=== PATIENT | male | born 1975 | race Caucasian/White ===

== ENCOUNTER 2017-12-27 12:34 | Emergency (ER) | payer BC ==
[2017-12-27 13:07] VITALS: BP 141/90
--- NOTE | 2017-12-27 14:05 | UC ---
Minor Trauma HPI - HPI Summary HPI Summary: 42 y/o male fell down full flight of steps last night at 2AM, had been drinking throughout the day but denies intoxication, denies LOC, no WATSON, neck pain. Ambulatory to bed, fell asleep, increased pain this AM in multiple locations with edema, bruising: - L middle finger, - L lower leg -chest near sterum worse with breathing - base of neck - R forearm - right shoulder Denies bowel, bladder loss. No medications/ OTCs for pain. Denies nausea/ vomiting. - History of Current Complaint Chief Complaint: UCUpperExtremity Stated Complaint: RIB AND BACK INJURY Time Seen by Provider: 12/27/17 13:25 Hx Obtained From: Patient, Family/Medical Physicist - Onset/Duration: Sudden Onset, Lasting Hours Onset Of Pain: Post Accident Severity Initially: Severe Severity Currently: Moderate Pain Intensity: 6 Pain Scale Used: 0-10 Numeric Mechanism Of Injury: Fall From Height Of: - top of full flight of steps, ~ 15 Aggravating Factor(s): Deep Breaths - to sternal area, Movement - fingers, shoulder Associated Signs And Symptoms: Positive: Ecchymosis, Swelling. Negative: Loss Of Consciousness - Allergies/Home Medications Allergies/Adverse Reactions: Allergies Allergy/AdvReac Type Severity Reaction Status Date / Time codeine Allergy GI Upset Verified 12/27/17 13:07 Home Medications: Home Medications Amlodipine Besylate [Norvasc 10 mg tab] 10 mg PO DAILY 12/27/17 [History Confirmed 12/27/17] Hydrochlorothiazide TAB* [Hydrodiuril TAB*] 25 mg PO DAILY 12/27/17 [History Confirmed 12/27/17] Spironolactone TAB* [Aldactone TAB 25 MG*] 25 mg PO DAILY 12/27/17 [History Confirmed 12/27/17] PMH/Surg Hx/FS Hx/Imm Hx - Additional Past Medical History Additional PMH: denies blood thinners Previously Healthy: Yes - HTN - Surgical History Surgical History: Yes Surgery Procedure, Year, and Place: RT [facility] ORIF - Social History Alcohol Use: Occasionally Substance Use Type: None Smoking Status (MU): Never Smoked Tobacco Type: Smokeless Tobacco Review of Systems Constitutional: Negative Musculoskeletal: Arthralgia, Edema, Myalgia Is Patient Immunocompromised?: No All Other Systems Reviewed And Are Negative: Yes Physical Exam - Summary Physical Exam Summary: T 1 region right sided, superficially, FUll ROM of neck, full strength with shoulder abd, flex, ext, add b/l, full prn/ supination of wrists b/l, full elbow movement b/l without pain, no snuff box tenderness b/l, rad/ ulnar pulses 2+ b/l, 4/5 eye physician strength on L due to pain in middle finger, 5/5 right; SITLT b/ l UE's, full ROM b/l wrists without pain, TTP L middle finger with associated ecchymosis, edema throughout finger. cap refill < 2secs b/l all fingers. full thumb AROM b/l. B/l LE's with + DF/ PF b/l 5/5 strength, TTP over mid saft tibia Left without ecchymosis, mild edema, Triage Information Reviewed: Yes Appearance: Well-Appearing, Well-Nourished, Pain Distress - mild at rest, moderate with movement Vital Signs: Initial Vital Signs Temp 99.2 F 12/27/17 13:04 Pulse 99 12/27/17 13:04 Resp 18 12/27/17 13:04 BP 141/90 12/27/17 13:04 Pulse Ox 100 12/27/17 13:04 Vital Signs Reviewed: Yes Eyes: Positive: Conjunctiva Inflamed ENT: Positive: TMs normal, Other - TMJ intact, no pain, no mastoid tenderness, no blood on TM exam. Dental Exam: Normal Dental: Negative: Cervical Lymphadenopathy Neck: Positive: Supple, No Lymphadenopathy, Tenderness @ - T 1 region right sided, superficially, FUll ROM of neck, full strength with shoulder abd, flex, ext, add b/l, full prn/ supination of wrists b/l, full elbow movement b/l without pain, no snuff box tenderness b/l, rad/ ulnar pulses 2+ b/l, 4/5 eye physician strength on L due to pain in middle finger, 5/5 right; SITLT b/l UE's, full ROM b/l wrists without pain, TTP L middle finger with associated ecchymosis, edema throughout finger. cap refill < 2secs b/l all fingers. full thumb AROM b/l.. Negative: Nuchal Rigidity Respiratory: Positive: Lungs clear, Normal breath sounds - mildly diminished b/ l due to poor effort due to pain, No respiratory distress, No accessory muscle use, Other: - TTP over lower third of sternum left sided. Negative: Respiratory distress, Decreased breath sounds, Crackles, Rhonchi, Stridor, Wheezing, Expiration, Inspiration Cardiovascular: Positive: RRR, No Murmur, Pulses Normal, Brisk Capillary Refill - b/l fingers Abdomen Description: Positive: Nontender, No Organomegaly, Soft. Negative: CVA Tenderness (R), CVA Tenderness (L) Musculoskeletal: Positive: Other: - T 1 region right sided, superficially, FUll ROM of neck, full strength with shoulder abd, flex, ext, add b/l, full prn / supination of wrists b/l, full elbow movement b/l without pain, no snuff box tenderness b/l, rad/ ulnar pulses 2+ b/l, 4/5 eye physician strength on L due to pain in middle finger, 5/5 right; SITLT b/l UE's, full ROM b/l wrists without pain, TTP L middle finger with associated ecchymosis, edema throughout finger. cap refill < 2secs b/l all fingers. full thumb AROM b/l. L shoulder non-tender, R shoulder TTP over AC joint, anterioro shoulder, full strenth with AROM against resistence, + ecchymosis anterior with superfical scraping. TTP over coccyx, patient denies bowel/ bladder incontinence. Neurological: Positive: Other: - able to stand n toes, heels, run heel up jack b /l, stand on one foot without difficulty b/l, patellar reflexes 2+ b/l, SITLT b/ l, + DF/PF = b/l. neg duran, neg homans, calf soft, non-tender. Psychological Exam: Normal Minor Trauma Course/Dx - Course Course Of Treatment: x-ray- negative for fracture, contusions, conservative treatment, work note given - Differential Dx/Diagnosis Differential Diagnosis/HQI/PQRI: Contusion(s), Fracture Provider Diagnoses: contusion, mulitple Discharge - Sign-Out/Discharge Documenting (check all that apply): Patient Departure All imaging exams completed and their final reports reviewed: Yes - Discharge Plan Condition: Good Disposition: HOME Prescriptions: Naproxen TAB* [Naprosyn 250 mg TAB*] 250 mg PO Q8H PRN #60 tab PRN Reason: Pain Tramadol HCl [Ultram] 50 mg PO Q6H PRN #30 tablet MDD 4 PRN Reason: Pain Patient Education Materials: Rib Fracture (ED), Contusion in Adults (ED), R.I.C.E. Treatment (ED) Forms: *Work Release Referrals: Yusuf Martinez DO [Primary Care Provider] - Additional Instructions: - Increased rest and fluids - Return to ER with increased dizziness, headache not relieved by pain medication, loss of bowel/ bladder control, weakness, numbness - Naproxen for pain relief, ultram as needed for severe pain - Follow up with primary physician as needed - Billing Disposition and Condition Condition: GOOD Disposition: Home
--- NOTE | 2017-12-27 15:04 | RAD ---
Indication: LEFT third finger pain post fall. Comparison: No relevant prior exams available on the [facility] for comparison. Technique: 3 views LEFT third finger. REPORT AND IMPRESSION: #. Negative for fracture or articular malalignment. Mild fusiform swelling distally.
--- NOTE | 2017-12-27 15:04 | RAD ---
INDICATION: Right forearm injury. TECHNIQUE: 2 views of the right forearm were obtained. FINDINGS: There is soft tissue swelling present along the dorsal aspect of the forearm. The bones are normal alignment. No fracture is seen. IMPRESSION: SOFT TISSUE SWELLING, NO FRACTURE IS SEEN.
--- NOTE | 2017-12-27 15:06 | RAD ---
Indication: RIGHT shoulder pain post fall. Tenderness to palpation anteriorly at the AC joint. Comparison: No relevant prior exams available on the [facility] [place] [facility] for comparison. Technique: Internal rotation AP, external rotation Grashey, scapular Y, axillary views RIGHT shoulder Report: Normal acromioclavicular and glenohumeral joint alignment. Negative for fracture. No arthropathic change evident. Unremarkable soft tissue contours. IMPRESSION: #. Negative radiographic exam of the RIGHT shoulder.
--- NOTE | 2017-12-27 15:08 | RAD ---
INDICATION: Sacrococcygeal injury. COMPARISON: There are no relevant prior studies available for comparison. TECHNIQUE: 3 views of the sacrococcygeal spine were obtained. FINDINGS: The vertebra are in normal alignment. No fracture is seen. IMPRESSION: NO EVIDENCE FOR FRACTURE.
--- NOTE | 2017-12-27 15:09 | RAD ---
Indication: Neck pain post fall. Tender to palpation over the RIGHT aspect of T1. Comparison: Thoracic spine exam of the same date and December 02, 2012 MRI. Technique: AP, open-mouth odontoid, lateral, and oblique views cervical spine. Report: Normal alignment from the craniocervical junction through the cervicothoracic junction. Assessment of the top of the T1 vertebral body is limited due to superimposed structures. No fracture visualized. Moderate C6-C7 disc space narrowing and anterior osteophytosis grossly new compared with the 2013 MRI. Oblique views are negative for osseous foraminal stenosis. Unremarkable prevertebral soft tissue contours. IMPRESSION: #. No radiographic evidence for traumatic injury of the cervical spine. #. C6-C7 degenerative spondylosis
--- NOTE | 2017-12-27 15:11 | RAD ---
INDICATION: Trauma. COMPARISON: There are no relevant prior studies available for comparison. TECHNIQUE: Dual-energy PA and lateral views of the chest were obtained. FINDINGS: The heart is within normal limits in size. Mediastinal and hilar contours appear within normal limits. The lungs are underinflated and clear. No pleural effusion or pneumothorax is seen. IMPRESSION: NO EVIDENCE FOR ACUTE FINDING.
--- NOTE | 2017-12-27 15:13 | RAD ---
Indication: Pain at the RIGHT margin of T1 post fall. Comparison: Cervical spine exam of the same date. Technique: AP and lateral views thoracic spine. Report: Conspicuity of the T1 and T2 vertebral bodies is compromised due to superimposed tissues however both vertebral bodies appear normal in height without evidence for fracture. No fracture visualized within the [id number]. Normal thoracic kyphosis. Unremarkable disc spaces for age. Unremarkable paraspinal soft tissue contours. Negative for pneumothorax within the [id number]. IMPRESSION: #. No radiographic evidence for traumatic thoracic spine injury.
== END 2017-12-27 15:48 | disposition home or self-care (01) ==
LOC: UCEAST 12:34
DX: T14.8XXA Other injury of unspecified body region, initial encounter (principal); M47.892 Other spondylosis, cervical region; I10 Essential (primary) hypertension; W10.9XXA Fall (on) (from) unspecified stairs and steps, initial encounter; Y92.9 Unspecified place or not applicable; Z88.5 Allergy status to narcotic agent
CPT/HCPCS: 71046; 72050; 72070; 72220; 73140; 99202; G0463